=== PATIENT | female | born 1995 | race Caucasian/White ===

== ENCOUNTER 2017-03-04 15:23 | Inpatient (IN) | payer SELFPAY ==
[2017-03-04] MEDS ORDERED: Ondansetron 4 MG/2 ML SDV IVPUSH PRN (17:30)
[2017-03-04] MEDS ORDERED: oxyCODONE 5 MG Tab PO PRN (17:30)
[2017-03-04] MEDS ORDERED: Morphine 2 MG/ML Syringe IVPUSH PRN (17:30)
[2017-03-04] MEDS ORDERED: Promethazine 25 MG/ML SDV IM PRN (17:30)
[2017-03-04] MEDS ORDERED: Potassium Chloride 10% 20 MEQ/15 ML Soln 15 ML UD Cup PO SCH (18:00)
[2017-03-04] MEDS ORDERED: Sodium Chloride 0.9% 10 ML Syringe FLUSH PRN (18:01)
[2017-03-04] MEDS: NS + KCl 20mEq/L 1,000 ML IV SCH (18:24)
[2017-03-04] MEDS: Pantoprazole 40 MG Vial IVPUSH SCH (21:35)
[2017-03-04] MEDS: cefTRIAXone 1 GM in Sodium Chloride 0.9% 50 ML IV SCH (21:37)
[2017-03-04] MEDS ORDERED: NORGESTIMATE ETHINYL ESTRADIOL PO SCH (22:00)
[2017-03-04] MEDS: diphenhydrAMINE 25 MG Tab PO PRN (22:04)
[2017-03-04] MEDS: Acetaminophen 325 MG Tab PO PRN (22:04)
--- NOTE | 2017-03-04 22:29 | HP ---
CHIEF COMPLAINT: Nausea and vomiting. HISTORY OF PRESENTING ILLNESS: Mrs. Aidee Broderick is a 21-year-old female with medical history significant for celiac disease and history of chronic tobacco use, presented to the clinic today with complaints of increasing nausea and vomiting and obtained some basic labs, which showed evidence of acute renal failure along with electrolyte imbalance really requiring admission to the hospital. At this time, the patient claims that the nausea and vomiting started last Tuesday, which has been progressively getting worse. She had multiple episodes of nausea and vomiting mainly on Tuesday night, where she had more than 8 episodes of vomiting which was bilious stained. No blood seen in the vomitus. Associated with epigastric discomfort, 3 to 4/10 in intensity, nonradiating type of pain associated with nausea and vomiting. She could not keep anything down. She was throwing up every time she eats or drinks, so she has not been eating well or drinking well in the last few days. Associated with mild chills, but no fever. The patient did not take any temperature at home. Not associated with any cough with sputum. Denies any chest pain. No shortness of breath. No diarrhea. No hematemesis, hematochezia, or melanotic stools in the last few days. The patient denied any history of chest pains on exertion. No history of dyspnea on exertion. No history of orthopnea or paroxysmal nocturnal dyspnea. The patient denied any history of hematemesis, hematochezia, or melanotic stools. Normal bowel and bladder habits. REVIEW OF SYSTEMS: A complete review of systems including skin; ears, nose, and throat; cardiovascular system; respiratory system; gastrointestinal system; genitourinary system; hematology; oncology; neurology; allergy; immunology; and constitutional were all evaluated and were negative except for the above said notes. PAST MEDICAL HISTORY: Significant for celiac disease and chronic tobacco use. PAST SURGICAL HISTORY: Significant for tonsillectomy and adenoidectomy. FAMILY HISTORY: Significant for diabetes in her grandmother and her cousin. ALLERGIC HISTORY: No known drug allergies. SOCIAL HISTORY: The patient has chronic history of tobacco use, but she is planning to quit smoking. HOME MEDICATIONS: Include: 1. Norgestimate-estradiol. 2. Hydroxyzine 10 mg daily. PHYSICAL EXAMINATION: Vital Signs: Temperature of 99.2, pulse of 70, blood pressure 120/87, respiratory rate of 16, and saturating at 98% on room air. General Appearance: The patient is well oriented to time, place, and person. Follows commands spontaneously. Cardiovascular System: S1 and S2 heard with normal intensity. No gallops. Respiratory System: Clear to auscultation bilaterally. No wheeze. No crepitations. Abdomen: Soft. Bowel sounds positive. Mild tenderness in the epigastric region. No rigidity. No guarding. No rebound tenderness. Extremities: No edema in bilateral lower extremities. Neurologic: No gross focal neurological deficit. LABORATORY DATA: Reviewed. Sodium 132, potassium 3, chloride 90, bicarb 32.4, glucose 116, creatinine 1.1, and calcium 10.1. AST 15 and ALT 27. CRP less than 0.2. TSH 1.56. WBC 14, hemoglobin 17.5, hematocrit 51, and platelet count 238. Urine beta-hCG is negative. ASSESSMENT: 1. Severe dehydration from nausea and vomiting. 2. History of celiac disease. 3. Acute renal failure. 4. Acute hyponatremia. 5. Acute hypokalemia. 6. Contraction alkalosis. 7. Leukocytosis. PLAN: 1. Intractable nausea and vomiting. Exact etiology is not clear. Unsure if the patient has any viral syndrome. The patient has history of celiac disease, biopsy proven. At this time, the patient will be kept on antiemetic protocol. 2. Acute renal failure. The patient noted to have elevated creatinine up to 1.1, elevated from her baseline function of 0.7 and elevated BUN up to 24. We will keep her hydrated with IV fluids. Avoid any nephrotoxic agents. Dose adjust medications for renal function. 3. Hyponatremia. This is mainly hypovolemic hyponatremia. Mainly from nausea and vomiting. We will keep her hydrated with IV fluids and recheck a basic metabolic panel in a.m. 4. Hypokalemia. We will mix potassium chloride to the fluids and also have her on oral potassium chloride. We will follow with a BMP in a.m. 5. Leukocytosis. This is mainly from hemoconcentration as her hemoglobin is also elevated up to 17. We will recheck a CBC in a.m. No signs of infection identified at this time. 6. DVT prophylaxis. We will have her on Lovenox for DVT prophylaxis. CODE STATUS: The patient wants to be full code. Discussed with Dr. Smiley, transferring physician, regarding the plan of care. Reviewed the labs and medications. Reviewed the old charts. Discussed with family members at bedside. [facility] /[id number]
[2017-03-05] MEDS: NS + KCl 20mEq/L 1,000 ML IV SCH ×2 (03:05→11:24)
[2017-03-05 07:06] LABS: CHLORIDE,CL 98 mmol/L (101-111); SODIUM,NA 135 mmol/L (135-145)
[2017-03-05] MEDS ORDERED: Potassium Chloride 10 MEQ Tab.ER PO SCH (08:00)
[2017-03-05] MEDS: Pantoprazole 40 MG Vial IVPUSH SCH (08:43)
[2017-03-05] MEDS: Enoxaparin 40 MG/0.4 ML Syringe SUBCUT SCH (08:47)
[2017-03-05] MEDS ORDERED: Prenatal Multivitamin with Calcium/Folic Acid/Iron Tab PO SCH (09:00)
[2017-03-05] MEDS ORDERED: Aluminum Hydroxide/Magnesium Hydroxide/Simethicone Susp 30 ML Cup PO PRN (16:45)
[2017-03-05] MEDS: cefTRIAXone 1 GM in Sodium Chloride 0.9% 50 ML IV SCH (20:07)
[2017-03-05] MEDS: diphenhydrAMINE 25 MG Tab PO PRN (21:18)
[2017-03-05] MEDS: Acetaminophen 325 MG Tab PO PRN (21:18)
[2017-03-05] MEDS ORDERED: NORGESTIMATE ETHINYL ESTRADIOL PO SCH (22:00)
[2017-03-06] MEDS: NS + KCl 20mEq/L 1,000 ML IV SCH (02:27)
[2017-03-06] MEDS ORDERED: Pantoprazole 40 MG Tab.CR PO SCH (06:00)
[2017-03-06 06:51] VITALS: BP 117/64
[2017-03-06] MEDS ORDERED: Potassium Chloride 10 MEQ Tab.ER PO SCH (09:00)
[2017-03-06] MEDS: Enoxaparin 40 MG/0.4 ML Syringe SUBCUT SCH (10:26)
--- NOTE | 2017-03-06 17:31 | DISCH ---
ADMITTING DIAGNOSES: 1. Intractable nausea and vomiting, possible viral gastroenteritis. 2. Gastroesophageal reflux disease exacerbation. 3. Acute hyponatremia. 4. Acute hypokalemia. 5. Acute renal failure. 6. Contraction alkalosis. 7. Leukocytosis. DISCHARGE DIAGNOSES: 1. Severe nausea and vomiting, most probably viral gastroenteritis, resolved. 2. Acute renal failure, resolved. 3. Acute hyponatremia and hypokalemia, resolved. 4. History of celiac disease. 5. Possible urinary tract infection. HISTORY OF PRESENT ILLNESS: Ms. Aidee Broderick is a 21-year-old female with medical history significant for celiac disease and history of chronic tobacco use, presents with complaints of increasing nausea and vomiting and was noted to be in acute renal failure, acute hyponatremia, and acute hypokalemia, requiring admission to the hospital. While in the hospital, the patient was noted to have possible urinary tract infection. She was started on IV ceftriaxone. She responded well to the treatment. Her electrolytes were within normal limits at the time of discharge. She is able to tolerate oral feeds well. She was kept on antiemetic protocol. She was kept on Protonix and Maalox. As she was noted to have gastroesophageal reflux disease exacerbation, she was prescribed Nexium at the time of discharge. She remained hemodynamically stable on this admission. She was able to ambulate well. She is discharged home in stable condition. She is advised to follow with her primary care physician in the next 1 to 2 weeks of time. DISCHARGE MEDICATIONS: Include: 1. Zyrtec 10 mg daily. 2. Nexium 40 mg daily. 3. Ortho Tri-Cyclen 1 tablet daily. 4. Ciprofloxacin 500 mg twice a day for the next 5 days. PHYSICAL EXAMINATION: On the day of discharge: Vital Signs: Temperature of 98.2, pulse of 63, blood pressure 117/64, respiratory rate of 18, and saturating at 100% on room air. General Appearance: The patient is well oriented to time, place, and person. Follows commands spontaneously. Cardiovascular System: S1 and S2 heard with normal intensity. No gallops. Respiratory System: Clear to auscultation bilaterally. No wheeze. No crepitations. Abdomen: Soft. Bowel sounds positive. Nontender. No rigidity. Extremities: No edema in bilateral lower extremities. Neurology: No gross focal neurological deficit. CONDITION ON ADMISSION: Poor. CONDITION ON DISCHARGE: Good. ACTIVITY: As tolerated. DIET: Regular diet as tolerated. FOLLOWUP: Follow up with primary care physician in the next 1 to 2 weeks of time. TIME SPENT: Spent over 35 minutes of time in evaluating and treating this patient and making discharge plan. [facility] /[id number]
--- NOTE | 2017-03-07 08:46 | PN ---
DATE: 03/05/2017 Mrs. Aidee Broderick is a 21-year-old female with medical history significant for celiac disease and history of chronic tobacco use presented to the clinic with complaints of increasing nausea and vomiting and was noted to have hypokalemia and hyponatremia requiring admission to the hospital. For the last 24 hours, the patient's urinalysis was suggestive of urinary tract infection and started on IV antibiotic, still awaiting for urine culture report. She denies any further vomiting, but continues to have nausea. She was continued on IV fluids and oral potassium chloride. She denies any chest pains. No shortness of breath. No abdominal pain. No diarrhea. REVIEW OF SYSTEMS: Cardiovascular, respiratory, gastrointestinal, neurology, constitutional were all evaluated. PHYSICAL EXAMINATION: Vital Signs: Temperature of 97.4, pulse of 80, blood pressure 123/69, respiratory rate 18, saturating at 100% on room air. General Appearance: Patient is well oriented to time, place, and person. Follows commands spontaneously. Cardiovascular System: S1, S2 heard with normal intensity. No gallops. Respiratory System: Clear to auscultation bilaterally. No wheeze. No crepitations. Abdomen: Soft. Bowel sounds positive. Nontender. No rigidity. Extremities: No edema bilateral lower extremities. Neurology: No gross focal neurological deficits. MEDICATIONS: Reviewed. Continue with: 1. Ceftriaxone 1 g IV daily. 2. Lovenox 40 mg subcutaneous daily. 3. Morphine 2 mg IV q.2 hours as needed for pain. 4. Protonix 40 mg IV q.12 hourly. 5. Potassium chloride 20 mEq daily. LABORATORY DATA: Reviewed shows WBC 9.9, hemoglobin 15.4, hematocrit 46.1, and platelet 221. Sodium 135, potassium 3.8, chloride 98, bicarb 26, BUN 15, creatinine 0.8, and glucose 114. Urinalysis; trace leukocyte esterase, moderate epithelial cells, moderate bacteria, and 10-20 wbc's. ASSESSMENT: 1. Intractable nausea and vomiting, improved. 2. Hyponatremia and hypokalemia, improved. 3. Possible urinary tract infection. 4. Acute renal failure, resolved. 5. Contraction alkalosis, resolved. 6. Leukocytosis, resolved. PLAN: 1. Intractable nausea and vomiting. This seems to be much improved, but the patient continues to feel nauseated. We will continue IV hydration. We will have her on antiemetic protocol. We will closely follow the patient. 2. Hyponatremia and hypokalemia, resolved. Her sodium and potassium are back to normal limits. We will cut down on the potassium chloride to 20 mEq daily. We will cut down on the IV fluids to 75 mL/hour. 3. Possible urinary tract infection. We will order for urine culture. Patient started on IV ceftriaxone. We will further titrate the antibiotics once we have the culture reports available. 4. Acute renal failure, resolved. The patient's creatinine is back to normal. Avoid any nephrotoxic agents. 5. Celiac disease. The patient has history of celiac disease. She was started on clear liquid diet at the time of admission. We will advance the diet to regular diet at this time. 6. Possible discharge in a.m. if she remains hemodynamically stable. [facility] /[id number]
== END 2017-03-06 11:15 | disposition home or self-care (01) | DRG 392 ==
LOC: DL.MS 16:45 → UNDOADMIN 16:45 → DL.MS 17:30 → EDSEX 17:30
PROVIDERS: ADMIT Internal Medicine; ATTEND Internal Medicine
DX: A08.4 Viral intestinal infection, unspecified (principal); N17.9 Acute kidney failure, unspecified; N39.0 Urinary tract infection, site not specified; E87.1 Hypo-osmolality and hyponatremia; E87.3 Alkalosis; E86.0 Dehydration; E87.6 Hypokalemia; D72.829 Elevated white blood cell count, unspecified; K90.0 Celiac disease; F17.200 Nicotine dependence, unspecified, uncomplicated; Z79.899 Other long term (current) drug therapy
CPT/HCPCS: 36415; 80048; 81001; 83735; 84100; 85027; 87086; A9270-GY; C9113; J0696; J1650; J3480; J7050

== ENCOUNTER 2017-12-24 07:34 | Emergency (ER) | payer OTHER ==
[2017-12-24 07:48] VITALS: BP 124/64
--- NOTE | 2017-12-24 07:52 | EDM.PDOC ---
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 Patient states she is 5 weeks and has not been able to keep anything down since yesterday noon. Patient states LMP was 11/18/17. Patient states she has been seen in the clinic. Patient admits to chills, but denies fever, diarrhea. Onset: Gradual Associated Symptoms: Reports: Fever/Chills, Nausea/Vomiting Throat Pain Score (Numeric/FACES): 7 - Related Data Allergies Allergy/AdvReac Type Severity Reaction Status Date / Time No Known Allergies Allergy Verified 03/04/17 15:44 Home Meds: Home Meds Cetirizine [ZyrTEC] 10 mg PO DAILY 03/04/17 [History] Esomeprazole Magnesium [Nexium] 40 mg PO DAILY #30 capsule.dr 03/06/17 [Rx] FLUoxetine [PROzac] 10 mg PO BEDTIME 12/24/17 [History] Ferrous Sulfate [Iron] 325 mg PO DAILY 12/24/17 [History] Past Medical History Respiratory History: Reports: Other (See Below) Other Respiratory History: exercise induced asthma Gastrointestinal History: Reports: GERD - Past Surgical History HEENT Surgical History: Reports: Adenoidectomy, Tonsillectomy Social & Family History - Family History Family Medical History: Noncontributory - Caffeine Use Caffeine Use: Reports: Soda ED ROS GENERAL - Review of Systems Review Of Systems: ROS reveals no pertinent complaints other than HPI. ED EXAM - Physical Exam Exam: See Below Exam Limited By: No Limitations General Appearance: Alert, WD/WN, Mild Distress Eye Exam: Bilateral Eye: EOMI, Normal Inspection Ears: Normal External Exam, Hearing Grossly Normal Nose: Normal Inspection Throat/Mouth: Other (Dry mucous membranes) Head: Atraumatic, Normocephalic Neck: Normal Inspection, Supple, Non-Tender, Full Range of Motion Respiratory/Chest: No Respiratory Distress, Lungs Clear, Normal Breath Sounds, No Accessory Muscle Use, Chest Non-Tender Cardiovascular: Normal Peripheral Pulses, Regular Rate, Rhythm, No Edema, No Gallop, No JVD, No Murmur, No Rub GI/Abdominal Exam: Normal Bowel Sounds, Soft, Tender Rectal Exam: Deferred Extremities: Normal Inspection, Normal Range of Motion, Non-Tender, Normal Capillary Refill, No Pedal Edema Neurological: Alert, Oriented, CN II-XII Intact, Normal Cognition, Normal Gait, Normal Reflexes, No Motor/Sensory Deficits Psychiatric: Normal Affect, Normal Mood Skin Exam: Warm, Dry, Intact, Normal Color, No Rash Lymphatic: No Adenopathy Course - Vital Signs Last Recorded V/S: Last Vital Signs Temp 97.8 F 12/24/17 07:47 Pulse 64 12/24/17 07:47 Resp 16 12/24/17 07:47 BP 124/64 12/24/17 07:47 Pulse Ox 100 12/24/17 07:47 - Orders/Labs/Meds Orders: Active Orders 24 hr Category Date Time Status Peripheral IV Care [RC] . DIRECTED Care 12/24/17 08:03 Active DRUG SCREEN URINE BIORAD [URCHEM] Stat Lab 12/24/17 09:24 Ordered HCG QUALITATIVE,URINE [URCHEM] Stat Lab 12/24/17 09:24 Ordered UA W/MICROSCOPIC [URIN] Stat Lab 12/24/17 09:24 Ordered Sodium Chloride 0.9% [Saline Flush] Med 12/24/17 08:02 Active 10 ml FLUSH ASDIRECTED PRN Peripheral IV Insertion Adult [OM.PC] Stat Oth 12/24/17 08:02 Ordered Medication Orders Sodium Chloride (Saline Flush) 10 ml FLUSH ASDIRECTED PRN PRN Reason: Keep Vein Open Last Admin: 12/24/17 08:19 Dose: 10 ml Labs: Laboratory Tests 12/24/17 12/24/17 12/24/17 Range/Units 08:13 08:13 09:24 WBC 15.9 H (5.0-10.0) 10^3/uL RBC 4.82 (4.2-5.4) 10^6/uL Hgb 15.2 (12.0-16.0) g/dL Hct 44.4 (37.0-47.0) % MCV 92.1 (80-100) fL MCH 31.5 (27.0-34.0) pg MCHC 34.2 (33.0-35.0) g/dL Plt Count 296 D (150-450) 10^3/uL Neut % (Auto) 82.5 H (42.2-75.2) % Lymph % (Auto) 10.2 L (20.5-50.1) % [place] % (Auto) 7.2 (2-8) % Eos % (Auto) 0.0 L (1.0-3.0) % Baso % (Auto) 0.1 (0.0-1.0) % Sodium 141 (135-145) mmol/L Potassium 3.4 L (3.6-5.0) mmol/L Chloride 98 L (101-111) mmol/L Carbon Dioxide 28.0 (21.0-31.0) mmol/L Anion Gap 18.4 BUN 20 H (7-18) mg/dL Creatinine 0.7 (0.6-1.3) mg/dL Est Cr Clr Drug Dosing 108.86 mL/min Estimated GFR (MDRD) > 60 BUN/Creatinine Ratio 28.57 Glucose 135 H (74-105) mg/dL Calcium 10.1 D (8.4-10.2) mg/dl Total Bilirubin 0.9 (0.2-1.0) mg/dL AST 26 (10-42) IU/L ALT 33 (10-60) IU/L Alkaline Phosphatase 60 (42-121) IU/L Total Protein 8.8 H (6.7-8.2) g/dl Albumin 5.1 (3.2-5.5) g/dl Globulin 3.7 Albumin/Globulin Ratio 1.38 Urine Color Yellow (YELLOW) Urine Appearance Slightly cloudy (CLEAR) Urine pH 7.0 (5.0-9.0) Ur Specific [place] 1.025 (1.005-1.030) Urine Protein 100 H (NEGATIVE) Urine Glucose (UA) Negative (NEGATIVE) Urine Ketones >=160 H (NEGATIVE) Urine Occult Blood Negative (NEGATIVE) Urine Nitrite Negative (NEGATIVE) Urine Bilirubin Small H (NEGATIVE) Urine Urobilinogen 0.2 (0.2-1.0) mg/dL Ur Leukocyte Esterase Negative (NEGATIVE) Urine RBC 0-5 /HPF Urine WBC 0-5 (0-5/HPF) /HPF Ur Epithelial Cells Moderate H /HPF Amorphous Sediment Few (0/HPF) /HPF Urine Bacteria Moderate H (0-FEW/HPF) /HPF Urine Mucus Few H /LPF Urine HCG, Qual Urine Opiates Screen (NEGATIVE) Ur Oxycodone Screen (NEGATIVE) Urine Methadone Screen (NEGATIVE) Ur Barbiturates Screen (NEGATIVE) U Tricyclic Antidepress (NEGATIVE) Ur Phencyclidine Scrn (NEGATIVE) Ur Amphetamine Screen (NEGATIVE) U Methamphetamines Scrn (NEGATIVE) Urine MDMA Screen (NEGATIVE) U Benzodiazepines Scrn (NEGATIVE) Urine Cocaine Screen (NEGATIVE) U Marijuana (THC) Screen (NEGATIVE) 12/24/17 12/24/17 Range/Units 09:24 09:24 WBC (5.0-10.0) 10^3/uL RBC (4.2-5.4) 10^6/uL Hgb (12.0-16.0) g/dL Hct (37.0-47.0) % MCV (80-100) fL MCH (27.0-34.0) pg MCHC (33.0-35.0) g/dL Plt Count (150-450) 10^3/uL Neut % (Auto) (42.2-75.2) % Lymph % (Auto) (20.5-50.1) % [place] % (Auto) (2-8) % Eos % (Auto) (1.0-3.0) % Baso % (Auto) (0.0-1.0) % Sodium (135-145) mmol/L Potassium (3.6-5.0) mmol/L Chloride (101-111) mmol/L Carbon Dioxide (21.0-31.0) mmol/L Anion Gap BUN (7-18) mg/dL Creatinine (0.6-1.3) mg/dL Est Cr Clr Drug Dosing mL/min Estimated GFR (MDRD) BUN/Creatinine Ratio Glucose (74-105) mg/dL Calcium (8.4-10.2) mg/dl Total Bilirubin (0.2-1.0) mg/dL AST (10-42) IU/L ALT (10-60) IU/L Alkaline Phosphatase (42-121) IU/L Total Protein (6.7-8.2) g/dl Albumin (3.2-5.5) g/dl Globulin Albumin/Globulin Ratio Urine Color (YELLOW) Urine Appearance (CLEAR) Urine pH (5.0-9.0) Ur Specific [place] (1.005-1.030) Urine Protein (NEGATIVE) Urine Glucose (UA) (NEGATIVE) Urine Ketones (NEGATIVE) Urine Occult Blood (NEGATIVE) Urine Nitrite (NEGATIVE) Urine Bilirubin (NEGATIVE) Urine Urobilinogen (0.2-1.0) mg/dL Ur Leukocyte Esterase (NEGATIVE) Urine RBC /HPF Urine WBC (0-5/HPF) /HPF Ur Epithelial Cells /HPF Amorphous Sediment (0/HPF) /HPF Urine Bacteria (0-FEW/HPF) /HPF Urine Mucus /LPF Urine HCG, Qual Positive Urine Opiates Screen Negative (NEGATIVE) Ur Oxycodone Screen Negative (NEGATIVE) Urine Methadone Screen Negative (NEGATIVE) Ur Barbiturates Screen Negative (NEGATIVE) U Tricyclic Antidepress Negative (NEGATIVE) Ur Phencyclidine Scrn Negative (NEGATIVE) Ur Amphetamine Screen Negative (NEGATIVE) U Methamphetamines Scrn Negative (NEGATIVE) Urine MDMA Screen Negative (NEGATIVE) U Benzodiazepines Scrn Negative (NEGATIVE) Urine Cocaine Screen Negative (NEGATIVE) U Marijuana (THC) Screen Positive H (NEGATIVE) Meds: Medications Generic Name Dose Route Start Last Admin Trade Name Freq PRN Reason Stop Dose Admin Sodium Chloride 10 ml 12/24/17 08:02 12/24/17 08:19 Saline Flush FLUSH 10 ml ASDIRECTED PRN Administration Keep Vein Open Discontinued Medications Generic Name Dose Route Start Last Admin Trade Name Freq PRN Reason Stop Dose Admin Sodium Chloride 1,000 mls @ 999 mls/hr 12/24/17 08:02 12/24/17 08:19 Normal Saline IV 12/24/17 09:02 999 mls/hr .BOLUS ONE Administration Ondansetron HCl 4 mg 12/24/17 08:02 12/24/17 08:20 Zofran IV 12/24/17 08:03 4 mg ONETIME ONE Administration Departure - Departure Time of Disposition: 09:46 Disposition: Home, Self-Care 01 Condition: Fair Clinical Impression: First trimester Nausea and vomiting Qualifiers: Vomiting type: bilious vomiting Qualified Code(s): R11.14 - Bilious vomiting - Discharge Information Instructions: First Trimester of , [id number], Nausea and Vomiting, Adult, [id number] Forms: ED Department Discharge Additional Instructions: Sips of water frequently Follow up with your primary care facility Begin taking vitamins if you haven't already Eat small frequent healthy snacks/meals Abstain from using Marijuana - My Orders Last 24 Hours: My Active Orders 12/24/17 08:02 Sodium Chloride 0.9% [Saline Flush] 10 ml FLUSH ASDIRECTED PRN Peripheral IV Insertion Adult [OM.PC] Stat 12/24/17 08:03 Peripheral IV Care [RC] . DIRECTED 12/24/17 09:24 DRUG SCREEN URINE BIORAD [URCHEM] Stat HCG QUALITATIVE,URINE [URCHEM] Stat UA W/MICROSCOPIC [URIN] Stat - Assessment/Plan Last 24 Hours: My Active Orders 12/24/17 08:02 Sodium Chloride 0.9% [Saline Flush] 10 ml FLUSH ASDIRECTED PRN Peripheral IV Insertion Adult [OM.PC] Stat 12/24/17 08:03 Peripheral IV Care [RC] . DIRECTED 12/24/17 09:24 DRUG SCREEN URINE BIORAD [URCHEM] Stat HCG QUALITATIVE,URINE [URCHEM] Stat UA W/MICROSCOPIC [URIN] Stat
[2017-12-24] MEDS ORDERED: Sodium Chloride 0.9% 10 ML Syringe FLUSH PRN (08:02)
[2017-12-24] MEDS ORDERED: Sodium Chloride 0.9% 1,000 ML IV ONE (08:02)
[2017-12-24] MEDS ORDERED: Ondansetron 4 MG/2 ML SDV IV ONE (08:02)
[2017-12-24 08:43] LABS: ANION GAP 18.4; CHLORIDE,CL 98 mmol/L (101-111); SODIUM,NA 141 mmol/L (135-145)
== END 2017-12-24 09:54 | disposition home or self-care (01) ==
LOC: DL.ED 07:34
DX: O21.9 Vomiting of pregnancy, unspecified (principal); O99.611 Diseases of the digestive system complicating pregnancy, first trimester; K21.9 Gastro-esophageal reflux disease without esophagitis; Z79.899 Other long term (current) drug therapy; Z3A.01 Less than 8 weeks gestation of pregnancy
CPT/HCPCS: 36415; 80053; 80305; 81001; 81025; 85025; 96361; 96374; 99284; J2405; J7030; J7050

== ENCOUNTER 2021-06-25 07:34 | Day surgery (SDC) | payer SELFPAY ==
[~2021-06-25 07:34] MED LIST: Midazolam 1 MG/ML 2 ML SDV ONE; fentaNYL 100 MCG/2 ML SDV ONE
[2021-06-25] MEDS ORDERED: Midazolam 1 MG/ML 2 ML SDV IV ONE ×3 (07:35→09:06)
[2021-06-25] MEDS ORDERED: fentaNYL 100 MCG/2 ML SDV IV ONE ×3 (07:35→09:05)
[2021-06-25] MEDS ORDERED: Dextrose 5%-0.45% NaCl 1,000 ML IV SCH (07:45)
--- NOTE | 2021-06-25 11:07 | OR ---
DATE: 06/25/2021 PROCEDURES: Esophagogastroduodenoscopy and multiple pinch biopsies. INSTRUMENT USED: [id number] Olympus video panendoscope. PREMEDICATIONS: No oral or topical anesthesia used. Fentanyl 100 mcg intravenous, Versed 2 mg intravenous. The procedure was done under pulse oximetry, BP recording, and monitor technician. INDICATION: The patient with known celiac disease, on gluten-free diet, persistent heartburn, dyspepsia, and abdominal pain unexplained and not responsive to medical measures, on high-dose PPI. Esophagogastroduodenoscopy is performed for detection of any active erosive lesions, [place] esophagus and/or malignancy also under consideration, H pylori status to be determined, endoscopic hemostasis therapy if needed. DESCRIPTION OF PROCEDURE: The scope was passed with ease. Adequate visualization of the esophagus was made from proximal to distal areas. No upper esophageal lesions identified. No distal esophageal stricture. No uphill or downhill esophageal varices. No Jailene-Willis tear. No evidence of erosive esophagitis by [place] criteria. No esophageal polyp or tumor mass identified. Z-line was seen at around 39 cm distal to the oral verge. No proximal gastric varices noted. Gastric fundus examination by retroflexion showed no polypoid lesions. No gastric ulcer, malignant mass, or vascular ectasia identified. There was some pylorospasm noted. Duodenal bulb showed no ulcer. Visualized second part of the duodenum was unremarkable. Multiple pinch biopsies, 4 in number, were taken from different areas of the second part of the duodenum and tissues were also obtained from the duodenal bulb at 9 and 12 o'clock positions and sent for any histopathologic evidence of celiac disease. Multiple pinch biopsies were obtained from the gastric antrum and proximal body and sent for PyloriTek test for H pylori and histopathology. No bleeding was noted from any of the visualized areas at the completion of examination. Photographs were taken of the duodenal bulb, gastric antrum, fundus, and distal esophagus. IMPRESSION: Normal study. The patient tolerated the procedure well. [facility] /[id number]
[2021-06-25 13:01] VITALS: BP 114/65; PULSE 68
== END 2021-06-25 11:21 | disposition home or self-care (01) ==
LOC: DL.ENDO 07:34
PROVIDERS: ATTEND Internal Medicine Gastroenterology
DX: K90.0 Celiac disease (principal); K21.9 Gastro-esophageal reflux disease without esophagitis; E66.9 Obesity, unspecified; F12.90 Cannabis use, unspecified, uncomplicated; F90.9 Attention-deficit hyperactivity disorder, unspecified type; Z98.890 Other specified postprocedural states; Z01.812 Encounter for preprocedural laboratory examination; Z20.822 Contact with and (suspected) exposure to COVID-19; Z68.31 Body mass index [BMI] 31.0-31.9, adult
CPT/HCPCS: 43239; 87635; J2250; J3010; J7042; U0002

== ENCOUNTER 2021-07-30 05:31 | Day surgery (SDC) | payer MEDICAID ==
[2021-07-30] MEDS ORDERED: fentaNYL 100 MCG/2 ML SDV IV ONE ×7 (05:32→06:48)
[2021-07-30] MEDS ORDERED: Midazolam 1 MG/ML 2 ML SDV IV ONE ×7 (05:32→06:42)
[2021-07-30] MEDS ORDERED: fentaNYL 100 MCG/2 ML SDV ONE (05:49)
[2021-07-30] MEDS ORDERED: Midazolam 1 MG/ML 2 ML SDV ONE (05:49)
[2021-07-30] MEDS ORDERED: Dextrose 5%-0.45% NaCl 1,000 ML IV SCH (06:00)
[2021-07-30] MEDS ORDERED: Sodium Chloride 0.9% 10 ML Syringe FLUSH SCH (09:00)
[2021-07-30 12:22] VITALS: BP 121/71; PULSE 60
== END 2021-07-30 09:00 | disposition home or self-care (01) ==
LOC: DL.ENDO 05:31
PROVIDERS: ATTEND Internal Medicine Gastroenterology
DX: K52.9 Noninfective gastroenteritis and colitis, unspecified (principal); K57.30 Diverticulosis of large intestine without perforation or abscess without bleeding; K90.0 Celiac disease; E66.09 Other obesity due to excess calories; F12.90 Cannabis use, unspecified, uncomplicated; F17.200 Nicotine dependence, unspecified, uncomplicated; K21.9 Gastro-esophageal reflux disease without esophagitis
CPT/HCPCS: 45380; J2250; J3010; J7042